=== PATIENT | female | born 1970 | race Caucasian/White ===

== ENCOUNTER 2023-07-22 11:01 | Outpatient (CLI) | payer BC, SELFPAY ==
--- NOTE | ~2023-07-22 | XR_ITS ---
EXAMINATION: XR abdomen/kub 1V DATE: 07/22/2023 11:21 INDICATION: Nausea. Unexplained weight loss. TECHNIQUE: A supine view of the abdomen on 2 radiographs was obtained. COMPARISON: None. FINDINGS: Cholecystectomy clips in right upper quadrant. L4-L5 anterior spinal fusion with interbody fusion dev ice. Small amount of gas scattered throughout the large and small bowel in a nonspecific nonobstructi ve bowel gas pattern. Lung bases are clear. Heart size is normal. Multiple phleboliths in the pelvis. IMPRESSION: 1. Nonspecific, nonobstructive bowel gas pattern. Reviewed, dictated and finalized at location A.
== END 2023-07-22 11:02 | disposition home or self-care (01) ==
PROVIDERS: PCP Nurse Practitioner Family; Visit Provider Nurse Practitioner
DX: R63.4 Abnormal weight loss (principal); R68.81 Early satiety; R11.0 Nausea
CPT/HCPCS: 74018

== ENCOUNTER 2023-08-16 13:15 | Outpatient (CLI) | payer BC, SELFPAY ==
--- NOTE | ~2023-08-16 | CT_ITS ---
EXAMINATION: CT chest abdomen pelvis w con DATE: 08/16/2023 13:57 INDICATION: Nausea. Abnormal weight loss. Early satiety. TECHNIQUE: Computed tomography (CT) of the chest, abdomen, and pelvis was performed with 100 mL Omnip aque 350 intravenous contrast. Automated exposure control and iterative reconstruction technique were employed. The dose-length product was 902.07 mGy-cm. COMPARISON: None FINDINGS: CHEST CT: The lungs demonstrate mild atelectasis. No pleural effusion. The heart size is normal. No pericardial effusion. There is severe thoracic spondylosis. There is mild chronic anterior wedging of multiple v ertebral bodies. ABDOMEN/PELVIS CT: The liver is normal. There are changes of cholecystectomy. The spleen, pancreas, and right adrenal gl and are normal. There is a 3.3 cm mass in left adrenal gland measuring soft tissue attenuation. There is cortical thinning of the kidneys. Uterine fibroids are noted. The left periuterine veins and left ovarian vein are enlarged, consistent with pelvic venous insufficiency. There is mild distention of the rectosigmoid. There is wall thickening of the descending colon, consistent with colitis. The appe ndix is normal. There are no pathologically enlarged lymph nodes. There is calcified atherosclerosis of the aorta and many of the other arteries. There is no free intraperitoneal fluid. There are chroni c bilateral L5 pars defects. There are changes of anterior fusion procedure at L4-L5. IMPRESSION: 1. 3.3 cm left adrenal mass, which may be an adenoma or less likely malignancy. Abdomen CT without an d with contrast is recommended. 2. Mild colitis of the descending colon. 3. Pelvic venous insufficiency. Reviewed, dictated and finalized at location A. IMPRESSION: 1. 3.3 cm left adrenal mass, which may be an adenoma or less likely malignancy. Abdomen CT without and with contrast is recommended. 2. Mild colitis of the descending colon. 3. Pelvic venous insufficiency.
== END 2023-08-16 13:16 | disposition home or self-care (01) ==
PROVIDERS: PCP Nurse Practitioner Family; Visit Provider Nurse Practitioner
DX: R63.4 Abnormal weight loss (principal); R68.81 Early satiety; R11.0 Nausea; Z87.891 Personal history of nicotine dependence; Z87.11 Personal history of peptic ulcer disease; D35.02 Benign neoplasm of left adrenal gland; K52.9 Noninfective gastroenteritis and colitis, unspecified
CPT/HCPCS: 71260; 74177; Q9967

== ENCOUNTER 2023-08-17 01:29 | Day surgery (SDC) | payer BC, SELFPAY ==
[2023-08-03 11:57] VITALS: BMI 33.0
[2023-08-17 14:07] VITALS: BP 111/67; PULSE 64; RESP 20; TEMP 35.6; O2SAT 98; BMI 32.3
[2023-08-17] MEDS: LACTATED RINGERS 1,000 ML 150 ML IV CONT (14:15)
--- NOTE | 2023-08-17 14:26 | WPDANESEPPF ---
Anes - Initial Pre Proc Eval Procedure: Operation Date: 08/17/23 15:00 Proposed Procedures p Esophagogastroduodenoscopy&Screen Colon - Osmin Walker MD Date/Time: 08/17/23 14:26 Surgeon: Osmin Walker MD Pre Op Diagnosis: Gerd, Dysphagia,Early satiety,Abn.Wt.loss Patient Data Age: 53 Gender: F Height: 1.57 m Weight: 80.2 kg Last Vital Signs Temp 96.1 F L 08/17/23 14:07 Pulse 64 08/17/23 14:07 Resp 20 08/17/23 14:07 BP 111/67 08/17/23 14:07 Pulse Ox 98 08/17/23 14:07 O2 Del Method Room Air 08/17/23 14:07 Allergies Allergy/AdvReac Type Severity Reaction Status Date / Time aspirin Allergy Unknown Bleeding Verified 08/17/23 14:06 cortisone Allergy Unknown Vomiting Verified 08/17/23 14:06 Penicillins Allergy Unknown Fever Verified 08/17/23 14:06 Home Medications Medication Instructions Recorded Confirmed Type methocarbamol 750 mg tablet 750 mg PO TID #90 tabs 03/01/19 08/17/23 Rx omeprazole 40 mg capsule,delayed 40 mg PO DAILY #30 caps 07/22/23 08/17/23 Rx release tizanidine 2 mg capsule 2 mg PO TID PRN Pain 07/22/23 08/17/23 History ciprofloxacin HCl 500 mg tablet 500 mg PO Q12H 10 days #20 tabs 08/17/23 08/17/23 Rx metronidazole 500 mg tablet 500 mg PO Q8H 10 days #30 tabs 08/17/23 08/17/23 Rx Patient hx anesthesia problems: none Family hx anesthesia problems: none Results Review: All pre-operative results and documents have been reviewed as part of the pre-operative evaluation. [facility] Past Medical History Medical History Back pain with history of spinal surgery Cholecystectomy planned Knee arthropathy Paratyphoid Surgical History Surgical History H/O wrist surgery Social History Social History Years smoked: 10 Smoking status: Former smoker Tobacco type: cigarettes Alcohol intake: current Living arrangements: with family Spiritual care concerns: No Anes - Eval Final PreProcedure Day of Procedure 08/17/23 14:26 Patient weight: obese Heart: regular rate and rhythm Lungs: clear to auscultation Airway: Mallampati scale and special considerations (Upper edentulous. ) Neurological: alert and oriented Last oral intake: >/= 8 hours ASA classification: II Emergent: no Anesthetic plan: proceed Anesthesia type and monitoring: general GIVS and standard monitoring Results Review: All pre-operative results and documents have been reviewed as part of the pre-operative evaluation. Ex smoker, quit approx 2022, 10-15 pack years. Informed Consent: The patient's anesthetic plan and its attendant risks and benefits were discussed with the patient/family/POA. Questions were solicited and answers provided to the satisfaction of the patient/family/POA.
--- NOTE | 2023-08-17 14:49 | WPDHPUPDATE1 ---
History and Physical Update Update Date/Time: 08/17/23 14:49 History and Physical has been reviewed, including an updated exam of the patient. There are NO changes in the patient's condition. Risks, benefits, and alternatives have been discussed and questions answered. Patient agrees to proceed with procedure.
--- NOTE | 2023-08-17 15:08 | SUR.OPER ---
EGD: [id number] COLON: Start 1500
[2023-08-17 15:23] VITALS: BP 100/47; PULSE 62; RESP 20; O2SAT 95
[2023-08-17 15:33] VITALS: BP 95/54; PULSE 60; RESP 20; O2SAT 99
[2023-08-17 15:43] VITALS: BP 93/54; PULSE 60; RESP 20; O2SAT 99
== END 2023-08-17 15:46 | disposition home or self-care (01) ==
PROVIDERS: PCP Nurse Practitioner Family; Referring Provider Nurse Practitioner; Visit Provider Internal Medicine Gastroenterology
PROC: 0DJ08ZZ Inspection of Upper Intestinal Tract, Via Natural or Artificial Opening Endoscopic (ICD-10-PCS; CPT 43235; principal; 2023-08-17 15:00)
DX: K52.831 Collagenous colitis (principal); K29.50 Unspecified chronic gastritis without bleeding; Z87.891 Personal history of nicotine dependence; E66.9 Obesity, unspecified; Z68.32 Body mass index [BMI] 32.0-32.9, adult
CPT/HCPCS: 45380; 43239; 88305; J2704; J7120